=== PATIENT | female | born 1985 | race Caucasian/White ===

== ENCOUNTER 2017-04-15 09:09 | Emergency (ER) | payer SELFPAY ==
[~2017-04-15] VITALS: Ht 160 cm; Wt 77.0 kg
[2017-04-15 09:11] VITALS: Ht 160 cm; Wt 77.0 kg
[2017-04-15] MEDS ORDERED: ONDANSETRON 4 MG INJ IV STA ×2 (09:27→12:10)
[2017-04-15] MEDS ORDERED: SOD CHLORIDE 0.9% 1,000 ML IV STA (09:27)
[2017-04-15 09:49] LABS: BASOPHILS % 0.5 % (0.0-2.0); EOSINOPHILS # 0.1 10^3/ul (0.0-0.5); EOSINOPHILS % 1.6 % (0.0-7.0); HEMATOCRIT 40.7 % (37.0-47.0); HEMOGLOBIN 13.3 g/dl (12.0-16.0); LYMPHOCYTES # 2.1 10^3/ul (0.8-2.9); LYMPHOCYTES % 33.8 % (15.0-51.0); MEAN CORPUSCULAR HEMOGLOBIN 30.3 pg (29.0-33.0); MEAN CORPUSCULAR HGB CONC 32.7 g/dl (32.0-37.0); MEAN CORPUSCULAR VOLUME 92.7 fl (82.0-101.0); MEAN PLATELET VOLUME 10.9 fl (7.4-10.4); MONOCYTE # 0.4 10^3/ul (0.3-0.9); NEUTROPHIL # 3.6 10^3/ul (1.6-7.5); NEUTROPHILS % 57.8 % (39.0-77.0); PLATELET COUNT 228 10^3/UL (140-415); RED BLOOD COUNT 4.39 10^6/ul (4.20-5.40); RED CELL DISTRIBUTION WIDTH 14.2 % (11.5-14.5); WHITE BLOOD COUNT 6.2 10^3/ul (4.8-10.8)
[2017-04-15] MEDS ORDERED: METOCLOPRAMIDE 10 MG INJ IV ONE ×2 (10:00→13:30)
[2017-04-15 10:20] LABS: ALBUMIN 4.2 g/dl (3.3-4.9); ALBUMIN/GLOBULIN RATIO 1.2; BILIRUBIN,INDIRECT 0.4 mg/dl (0-1.1); BILIRUBIN,TOTAL 0.4 mg/dl (0.2-1.3); CREATININE 0.75 mg/dl (0.44-1.00); POTASSIUM 4.2 mmol/L (3.5-5.1); TOTAL PROTEIN 7.7 g/dl (6.1-8.1)
[2017-04-15] MEDS ORDERED: LORAZEPAM 2 MG INJ IV ONE (10:30)
[2017-04-15] MEDS ORDERED: METO10TA92 PO (11:33)
[2017-04-15] MEDS ORDERED: FAMO-96 PO (11:33)
[2017-04-15] MEDS ORDERED: LORA-441 PO (11:33)
--- NOTE | 2017-04-15 11:36 | ERD ---
ER Documentation Chief Complaint Date/Time DATE: 04/15/17 TIME: 11:34 Chief Complaint ap with nausea and vomiting since 0300 today HPI This 31-year-old female presents with epigastric pain and vomiting diarrhea starting earlier this morning. Patient has a history of epigastric pain and vomiting. She was never given a complete diagnosis but she is improved with Reglan. Patient denies possible as she is in a same sex marriage. Denies urinary complaints, fevers. Denies any lower or right-sided abdominal pain. Denies regular marijuana use. ROS All systems reviewed and are negative except as per history of present illness. Medications Home Meds Active Scripts Famotidine* (Pepcid*) 20 Mg Tablet, 20 MG PO BID for 7 Days, #14 TAB Prov:MINOO KIM MD 04/15/17 Lorazepam* (Ativan*) 0.5 Mg Tablet, 0.5 MG PO Q8, #7 TAB Prov:MINOO KIM MD 04/15/17 Metoclopramide* (Reglan*) 10 Mg Tablet, 10 MG PO Q6 Y for NAUSEA AND/OR VOMITING , #20 TAB Prov:MINOO KIM MD 04/15/17 PMhx/Soc Medical and Surgical Hx: pt denies Medical Hx, pt denies Surgical Hx Hx Alcohol Use: Yes Hx Substance Use: No Hx Tobacco Use: No Smoking Status: Never smoker Physical Exam Vitals Vital Signs Date Time Temp Pulse Resp B/P Pulse Ox O2 Delivery O2 Flow Rate FiO2 04/15/17 09:11 98.2 99 18 137/83 99 Physical Exam Const: [], Uncomfortable, no apparent distress. Head: Atraumatic Eyes: Normal Conjunctiva ENT: Normal External Ears, Nose and Mouth. Neck: Full range of motion..~ No meningismus. Resp: Clear to auscultation bilaterally Cardio: Regular rate and rhythm, no murmurs Abd: Soft, department of the epigastric area. No tenderness at McBurney's point no Banerjee sign. non distended. Normal bowel sounds Skin: No petechiae or rashes Back: No midline or flank tenderness Ext: No cyanosis, or edema Neur: Awake and alert Psych: Normal Mood and Affect Result Diagram: 04/15/1792604/15/17934 Results 24 hrs Laboratory Tests Test 04/15/17 09:27 04/15/17 09:35 04/15/17 12:05 White Blood Count 6.210^3/ul Red Blood Count 4.3910^6/ul Hemoglobin 13.3g/dl Hematocrit 40.7% Mean Corpuscular Volume 92.7fl Mean Corpuscular Hemoglobin 30.3pg Mean Corpuscular Hemoglobin Concent 32.7g/dl Red Cell Distribution Width 14.2% Platelet Count 25844^3/UL Mean Platelet Volume 10.9fl Neutrophils % 57.8% Lymphocytes % 33.8% Monocytes % 6.0% Eosinophils % 1.6% Basophils % 0.5% Nucleated Red Blood Cells % 0.0/100WBC Neutrophils # 3.610^3/ul Lymphocytes # 2.110^3/ul Monocytes # 0.410^3/ul Eosinophils # 0.110^3/ul Basophils # 0.010^3/ul Nucleated Red Blood Cells # 0.010^3/ul Sodium Level 141mmol/L Potassium Level 4.2mmol/L Chloride Level 111mmol/L Carbon Dioxide Level 22mmol/L Anion Gap 12 Blood Urea Nitrogen 7mg/dl Creatinine 0.75mg/dl Glucose Level 111mg/dl Calcium Level 10.0mg/dl Total Bilirubin 0.4mg/dl Direct Bilirubin 0.00mg/dl Indirect Bilirubin 0.4mg/dl Aspartate Amino Transf (AST/SGOT) 48IU/L Alanine Aminotransferase (ALT/SGPT) 24IU/L Alkaline Phosphatase 102IU/L Total Protein 7.7g/dl Albumin 4.2g/dl Globulin 3.50g/dl Albumin/Globulin Ratio 1.20 Lipase 82U/L Urine Color YELLOW Urine Clarity CLEAR Urine pH 8.0 Urine Specific [place] 1.017 Urine Ketones NEGATIVEmg/dL Urine Nitrite NEGATIVEmg/dL Urine Bilirubin NEGATIVEmg/dL Urine Urobilinogen NEGATIVEmg/dL Urine Leukocyte Esterase NEGATIVELeu/ul Urine Hemoglobin NEGATIVEmg/dL Urine Glucose NEGATIVEmg/dL Urine Total Protein NEGATIVEmg/dl Current Medications Medications (Trade) Dose Ordered Sig/Murtaza Route PRN Reason Start Time Stop Time Status Last Admin Dose Admin Sodium Chloride (NS) 1,000 ml @ 1,000 mls/hr Q1H STAT IV 04/15/17 09:27 04/15/17 10:26 DC 04/15/17 09:40 Ondansetron HCl (Zofran Inj) 4 mg ONCE STAT IV 04/15/17 09:27 04/15/17 09:28 DC 04/15/17 09:40 Metoclopramide HCl (Reglan) 10 mg ONCE ONCE IV 04/15/17 10:00 04/15/17 10:03 DC 04/15/17 10:07 Lorazepam (Ativan) 1 mg ONCE ONCE IV 04/15/17 10:30 04/15/17 10:31 DC 04/15/17 10:07 Ondansetron HCl (Zofran Inj) 4 mg ONCE STAT IV 04/15/17 12:10 04/15/17 12:11 DC 04/15/17 12:17 Metoclopramide HCl (Reglan) 10 mg ONCE ONCE IV 04/15/17 13:30 04/15/17 13:31 DC 04/15/17 13:41 IV Flush 10 ml 10 ml STK-MED ONCE .ROUTE 04/15/17 14:07 04/15/17 14:08 DC Sodium Chloride (NS) 100 ml @ ud STK-MED ONCE .ROUTE 04/15/17 14:07 04/15/17 14:08 DC Iohexol (Omnipaque 300mg/ ml) 150 ml STK-MED ONCE .ROUTE 04/15/17 14:07 04/15/17 14:08 DC Procedures/MDM IV was obtained patient was given 1 L normal saline IV. Patient had persistent vomiting after Zofran 4 mg IV. Patient was given Reglan 10 mg IV. CBC and CMP show no definite acute abnormalities. Solomons better after observation and treat with mild residual epigastric pain but no rebound or lower right-sided abdominal tenderness. UA shows no acute findings and hCG is negative. Patient presents with epigastric pain and vomiting diarrhea of uncertain etiology, possibly gastroenteritis. Patient did have some vomiting after initial antiemetics with CT abdomen pelvis with IV contrast shows uterine fibroids otherwise no acute findings. She will be treated with Reglan and Pepcid and a few Ativan and observation at home. The patient was stable with no new complaints during the ER course. Clinically, there is no current evidence to suggest meningitis, sepsis, acute abdomen, pneumonia, acute coronary syndrome, pulmonary embolism, or any other emergent condition appearing to require further evaluation or hospitalization. The patient should certainly return for any new or worsening symptoms per the aftercare instructions. They should otherwise follow-up with her primary care doctor for reevaluation this week. Departure Diagnosis: Primary Impression: Nausea and vomiting Vomiting type: unspecified Vomiting Intractability: unspecified Qualified Code: R11.2 - Nausea and vomiting, intractability of vomiting not specified, unspecified vomiting type Condition: Stable Patient Instructions: Nausea and Vomiting-Adult Additional Instructions: Recheck for new or worsening symptoms or primary care doctor. MINOO KIM MD Apr 15, 2017 11:36 MINOO KIM MD Apr 15, 2017 11:36
[2017-04-15 12:26] LABS: ADD UMIC NO; UR ASCORBIC ACID NEGATIVE (NEGATIVE); UR BILIRUBIN (Dip) NEGATIVE (NEGATIVE); UR BLOOD (Dip) NEGATIVE (NEGATIVE); UR CLARITY CLEAR (CLEAR); UR COLOR YELLOW (YELLOW); UR GLUCOSE (Dip) NEGATIVE (NEGATIVE); UR KETONES (Dip) NEGATIVE (NEGATIVE); UR LEUKOCYTE ESTERASE (Dip) NEGATIVE Leu/ul (NEGATIVE); UR NITRITE (Dip) NEGATIVE (NEGATIVE); UR SPECIFIC GRAVITY (Dip) 1.017 (1.003-1.030); UR TOTAL PROTEIN (Dip) NEGATIVE (NEGATIVE); UR UROBILINOGEN (Dip) NEGATIVE (NEGATIVE)
[2017-04-15] MEDS ORDERED: SOD CHLORIDE 0.9% 100 ML ONE (14:07)
[2017-04-15] MEDS ORDERED: IOHEXOL 300MG/ML 150 ML BTL ONE (14:07)
--- NOTE | 2017-04-15 14:31 | RADRPT ---
PROCEDURE: CT Abdomen and Pelvis with contrast. CLINICAL INDICATION: Abdomen and pelvis pain. Vomiting. TECHNIQUE: CT scan of the abdomen and pelvis with contrast was performed. The patient was scanned following the uncomplicated intravenous administration of 100 cc of Omnipaque-300. Coronal and sag ittal reformatted images were obtained from the axial source images. Images were reviewed on a high- resolution PACS workstation. Total exam DLP is 322.08 mGy-cm. CTDIvol is 5.80 mGy. One or more of the following dose reduction techniques were used: Automated exposure control, adjustment of the mA and/or kV according to patient size, use of iterative reconstruction technique. COMPARISON: None. FINDINGS: The lung bases are normal. There is no pleural effusion. The liver is normal in size and attenuation. There is no focal hepatic lesion. The gallbladder and bile ducts are normal. The spleen is normal in size. There is no focal splenic lesion. Both adrenals are normal with no enlargement or mass. The pancreas is unremarkable with no mass or evidence of pancreatitis. Both kidneys demonstrate normal contrast enhancement. There is no renal mass or hydronephrosis. The abdominal aorta is not dilated. There is no retroperitoneal lymphadenopathy or mass. There is no pelvic lymphadenopathy. The uterus is enlarged and has multiple masses consistent with f ibroids. There is no other pelvic mass. There is jewelry in the labia. The bladder and distal ureters are normal. The periappendiceal region is unremarkable with no evidence of appendicitis. The bowel and mesentery are normal. There is no free fluid or free gas. The osseous structures are unremarkable with no fracture or lytic lesion. IMPRESSION: 1. Enlarged uterus with multiple fibroids. 2. Otherwise unremarkable CT scan of the abdomen and pelvis. RPTAT: QQ .Chun Reagan MD, MD Date Time Electronically viewed and signed by .Chun Reagan MD, MD on 04/15/2017 14:31 .R/
[2017-04-15 15:00] VITALS: BP 118/70; PULSE 57; RESP 18
== END 2017-04-15 16:23 | disposition home or self-care (01) ==
LOC: FTE 09:09
DX: R10.13 Epigastric pain (principal); R11.2 Nausea with vomiting, unspecified
CPT/HCPCS: 36415; 74177; 80053; 81003; 83690; 85025; 96374; 96375; 96376; 99285; J2060; J2405; J2765; J7030; Q9967